=== PATIENT | male | born 1985 | race Caucasian/White ===

== ENCOUNTER 2024-06-01 06:41 | Emergency (ER) | payer SELFPAY ==
--- NOTE | ~2024-06-01 | XR_ITS ---
EXAMINATION: XR CHEST CLINICAL INFORMATION: Shortness of breath, COVID positive COMPARISON: None available. TECHNIQUE: Frontal view of the chest was obtained. FINDINGS: No significant abnormality is noted involving the heart, lungs, mediastinum, bony thorax or soft tissues. XR/XR chest 1V IMPRESSION: No acute process Electronically signed by: Andreas Sánchez MD 06/01/2024 07:16 AM EDT RP
--- NOTE | ~2024-06-01 | CT_ITS ---
EXAMINATION: CT ANGIOGRAM OF THE CHEST WITH AND WITHOUT CONTRAST (CT PULMONARY ANGIOGRAM FOR PE) CLINICAL INFORMATION: COVID 2.5 weeks, SOB, CP COMPARISON: No pertinent prior studies are available for comparison. TECHNIQUE: Prior to contrast administration, noncontrast localization images were obtained. Subsequently, multidetector volumetric imaging was performed from the thoracic inlet to the pubic symphysis through the chest, abdomen, and pelvis following the administration of 80 mL Omnipaque 350 intravenous contrast. No contrast reaction reported Sagittal, coronal, and MIP oblique sagittal (through the chest only) reformatted images were obtained on the CT workstation, uploaded to PACS, and reviewed. Total exam dose-length product: 528 mGy-cm FINDINGS: QUALITY OF STUDY/CONTRAST BOLUS: Suboptimal. PULMONARY ARTERIES: No gross large emboli noted but the contrast enhancement is suboptimal because the study is considered suboptimal. THORACIC AORTA: No aneurysm or dissection. LUNG: No focal consolidation, nodules or masses. PLEURA: No pleural effusion or pneumothorax. MEDIASTINUM: Normal heart size. No pericardial effusion. No hilar or mediastinal lymphadenopathy. No evidence of septal bowing or right heart strain. CHEST WALL/AXILLA: No axillary or internal mammary lymphadenopathy. ABDOMEN/PELVIS: The liver is enlarged and demonstrates severe hepatic steatosis. There is no significant reflux of contrast into the IVC or hepatic veins. There is kyphosis and spondylitic change in the thoracic spine. Sternum intact. CT/CT angio chest PE protocol IMPRESSION: 1. Suboptimal study. No gross large emboli. No active disease in the chest. 2. VTE: Negative Electronically signed by: Harsh Lowry MD 06/01/2024 10:26 AM EDT
[2024-06-01 06:49] VITALS: BP 172/105; PULSE 108; RESP 16; TEMP 36.5; O2SAT 97; BMI 48.3
[2024-06-01 07:22] LABS: MANUAL DIFF FLAG NO
[2024-06-01 07:24] LABS: Basophils Absolute Auto 0.1 X10*3/uL (0.0-0.2); Basophils Percent Auto 0.9 % (0-2); Eosinophils Absolute Auto 0.3 X10*3/uL (0.0-0.4); Eosinophils Percent Auto 3.3 % (0-4); Hematocrit 45.3 % (42.0-52.0); Hemoglobin 15.2 g/dl (14.0-18.0); Imm Gran Abs Auto 0.15 X10*3/uL (0.00-0.03); Imm Gran Pct Auto 1.6 % (0.0-0.4); Lymphocytes Absolute Auto 1.8 X10*3/uL (1.2-4.9); Lymphocytes Percent Auto 19.8 % (20-40); Mean Corpuscular HGB Conc 33.6 g/dl (31.0-36.0); Mean Corpuscular Volume 89.3 fL (80.0-98.0); Mean Platelet Volume 9.4 fL (9.4-12.4); Monocytes Absolute Auto 0.6 X10*3/uL (0.1-1.2); Monocytes Percent Auto 6.5 % (2-11); NRBC Pct Auto 0.4 /100WBC (0.0-0.2); Neutrophils Absolute Auto 6.3 x10*3/uL (2.0-8.3); Neutrophils Percent Auto 67.9 % (45-73); Platelet Count 150 X10*3/uL (160-400); Red Blood Count 5.07 X10*6/uL (4.60-5.80); Red Cell Distribution Width 15.6 % (11.0-16.0); White Blood Count 9.3 X10*3/uL (4.8-10.8)
[2024-06-01 07:37] LABS: D Dimer High Sensitivity < 150 NG/ML
--- NOTE | 2024-06-01 07:37 | ED_ITS ---
HPI - URI/Sore Throat General Chief Complaint: Upper Respiratory Symptoms Stated Complaint: COVID symptoms Time Seen by Provider: 06/01/24 07:37 Source: patient Mode of arrival: ambulatory Limitations: no limitations History of Present Illness ED Provider: Dr. Kailash Parmar HPI Narrative: 39-year-old male with a history depression, anxiety, PTSD who presents emergency department for evaluation of shortness of breath, dyspnea on exertion productive cough, body aches, nausea and fatigue. The patient tested positive for COVID a proximally 2.5 weeks prior. Patient also states that he has had persistent nausea with intermittent vomiting. He states that he has had frequent stools but no diarrhea. Patient is a nurse in our emergency department. He states he tried to come to work yesterday but was only able to work for hours before he was fatigued and had to go home. Patient was concerned that his symptoms were not improving therefore he came to the emergency department for evaluation. Related Data Allergies Allergy/AdvReac Type Severity Reaction Status Date / Time No Known Allergies Allergy Verified 06/01/24 06:52 Review of Systems 2 Review of Systems: Yes all other systems are reviewed and are negative [facility] Past Medical History [facility] Narrative: Social history: The patient does smoke 2-3 cigarettes per day but also vapes nicotine program. He denies alcohol and drug use. Social History Social History Advance Directives: No Do you have a plan to hurt others: No Plan Physical Exam 2 Vital Signs: Vital Signs: Last Vital Signs Temp 98.2 F 06/01/24 12:36 Pulse 101 H 06/01/24 12:36 Resp 18 06/01/24 12:36 BP 152/70 H 06/01/24 12:36 Pulse Ox 97 06/01/24 12:36 O2 Del Method Room Air 06/01/24 12:36 BMI result Body Mass Index 48.3 Vital signs revealed an elevated heart rate of 101 and an elevated blood pressure of 152/70. O2 saturation was 97% on room air Exam: General: Awake, alert in no distress Head: Normocephalic, atraumatic EENT: PERRL, Lids normal, sclera normal, conjunctiva normal, nose normal , ears normal, throat without erythema or exudates Neck: Supple, no adenopathy Lung: breath sounds symmetric, no wheezing, rales or rhonchi Chest: symmetric movement, nontender Heart: regular rate and rhythm, normal S1, S2 no murmurs or rubs Abdomen: soft, non-tender, nondistended, normal bowel sounds Back: no vertebral tenderness, no CVAT Extremities: no deformities, moves all extremities symmetrically, trace to 1+ pitting edema, bilaterally symmetric Neuro: Awake, alert, oriented, normal speech, moves all extremities symmetrically Psych: Pleasant, cooperative Medications Administered Discontinued Medications Generic Name Dose Route Start Last Admin Trade Name Lorenza PRN Reason Stop Dose Admin Lactated Ringer's 1,000 mls @ 999 mls/hr 06/01/24 07:51 06/01/24 08:34 Lr IV 06/01/24 08:51 999 mls/hr .Q1H1M STA Administration Iohexol 84 ml 06/01/24 08:56 06/01/24 08:57 Iohexol 350 Mg/Ml 75 Ml Infus..Btl IV 06/01/24 08:57 84 ml ONCE ONE Administration Medical Decision Making Medical Decision Making [facility] Narrative: 39-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 The patient tested positive for COVID a proximally 2.5 weeks prior. Vital signs did revealed an elevated heart rate and elevated blood pressure otherwise unremarkable. Physical examination did reveal trace to 1+ pitting edema bilaterally symmetric but was otherwise unremarkable. Differential diagnosis: ?Includes but is not limited to bronchitis, bacterial pneumonia, viral pneumonia, cardiomyopathy, myocardial infarction, myocardial ischemia, pulmonary embolism Following evaluation was ordered: CBC, BNP, liver panel, troponin, BNP, D- dimer, chest x-ray, CT pulmonary angiogram PE protocol, COVID-19, RSV and influenza Patient was initially treated with the following: Lactated Ringer's x1 L Course: The patient's laboratory evaluation did reveal low platelet count otherwise was unremarkable. Patient's COVID-19 test was negative. Chest x-ray did not reveal any significant abnormalities. Given the patient's persistent symptoms I was concerned that he may have a pulmonary embolism however the CT pulmonary angiogram was negative which is very reassuring. The patient does have trace pitting edema and I think that this is related to the patient being immobile secondary to his illness in his increased fluid intake I do not think it is secondary to cardiomyopathy or myocardial infarction. My impression is that the patient has persistent symptoms secondary to COVID-19 and that he may take another week or 2 to recover. I did discuss this with him. Given his inability to work, he was given a work note for 1 week. He was advised to follow up with his PCP and to return to the emergency department if his symptoms got worse if he developed any new symptoms that were concerning to him. Admission/Observation Consideration of admission/observation: Escalation of care including admission/observation considered Lab Data MDM Lab Attestation statement: I reviewed the patient's lab results. My independent interpretation patient's laboratory evaluation is as follows: CBC revealed a low platelet count of a [id number]. Glucose elevated 128. High sensitive troponin I was detectable but not elevated at 3.4. D-dimer was normal. COVID-19, influenza and RSV were negative. BNP was normal. COVID-19, RSV and influenza were negative. 06/01/24 07:16 06/01/24 07:16 Labs: Lab Results 06/01/24 Range/Units 07:16 WBC 9.3 (4.8-10.8) X10*3/uL RBC 5.07 (4.60-5.80) X10*6/uL Hgb 15.2 (14.0-18.0) g/dl Hct 45.3 (42.0-52.0) % MCV 89.3 (80.0-98.0) fL MCH 30.0 (27.0-33.0) pg MCHC 33.6 (31.0-36.0) g/dl RDW 15.6 (11.0-16.0) % Plt Count 150 L (160-400) X10*3/uL MPV 9.4 (9.4-12.4) fL Immature Gran % (Auto) 1.6 H (0.0-0.4) % Neut % (Auto) 67.9 (45-73) % Lymph % (Auto) 19.8 L (20-40) % [place] % (Auto) 6.5 (2-11) % Eos % (Auto) 3.3 (0-4) % Baso % (Auto) 0.9 (0-2) % Lymph # (Auto) 1.8 (1.2-4.9) X10*3/uL [place] # (Auto) 0.6 (0.1-1.2) X10*3/uL Eos # (Auto) 0.3 (0.0-0.4) X10*3/uL Baso # (Auto) 0.1 (0.0-0.2) X10*3/uL Abs Immat Gran (auto) 0.15 H (0.00-0.03) X10*3/uL Absolute Neuts (auto) 6.3 (2.0-8.3) x10*3/uL Absolute Nucleated RBC 0.040 H (0.0-0.012) X10*3/uL Nucleated RBC % (auto) 0.4 H (0.0-0.2) /100WBC D-Dimer High Sensitivty < 150 NG/ML Sodium 139 (135-145) mmol/L Potassium 3.5 (3.3-5.1) mmol/L Chloride 105 (96-108) mmol/L Carbon Dioxide 24 (22-29) mmol/L Anion Gap 14 (12-20) BUN 9 (9-16) mg/dL Creatinine 0.98 (0.5-1.4) mg/dL Estim Creat Clear Calc 121.5 Estimated GFR > 60 Random Glucose 129 H (60-115) mg/dL Calcium 9.7 (8.4-10.2) mg/dL Troponin I High Sens 3.4 (<3.5-35.0) ng/L B-Natriuretic Peptide < 10 (<100) pg/mL Influenza Type A (PCR) NEGATIVE (Negative) Influenza Type B (PCR) NEGATIVE (Negative) RSV RNA Qual (PCR) NEGATIVE (Negative) SARS-CoV-2 RNA (RT-PCR) NEGATIVE (Negative) Independent Interpretation I performed an independent interpretation of an: EKG and Plain X-Ray Interpretation: My independent interpretation patient's 12 EKG is as follows: Normal sinus rhythm rate of 90, normal CA interval, QRS duration QTC interval, no ST segment elevation, no ST segment depression, small Q-wave in lead 3, no significant T- wave abnormalities no PACs, no PVCs-this is a normal EKG My independent interpretation patient's chest x-ray is as follows: No acute infiltrates noted Radiology Impression Discussion of test interpretation with radiology: I have reviewed the radiologist's reading. Radiologist Impression: CT angio chest PE protocol IMPRESSION: 1. Suboptimal study. No gross large emboli. No active disease in the chest. 2. VTE: Negative Electronically signed by: Harsh Lowry MD 06/01/2024 10:26 AM EDT RP Dictated By: Harsh Lowry MD Discharge Plan Discharge Clinical Impression: COVID-19, Dyspnea, Myalgia Patient Disposition: Home, Self-Care Additional Instructions: Your laboratory evaluation was unremarkable except for a slightly low platelet count of a [id number]. This is most likely related to your COVID infection. When you are feeling better you should have a repeat platelet count as an outpatient by your primary care provider. Your chest x-ray was normal. Your EKG was normal. The CT pulmonary angiogram PE protocol revealed no blood clots in your lungs. There were no abnormalities noted of your lungs which is reassuring-there was no evidence for consolidated pneumonia or viral pneumonia which is reassuring. Your COVID-19, influenza and RSV tests were negative. Take ibuprofen 200 mg pills, 2 pills every 6 hours as needed for pain or fever. Take Tylenol (acetaminophen) 500 mg pills, 2 pills every 6 hours as needed for pain or fever. I believe that the swelling in your legs is due to drinking too much fluid and not moving as you normally would given your illness. You should drink fluid only when your thirsty in you should try to get up and move and walk around to improve this dependent edema. At this time, I do not think that your well enough to return to work and that your symptoms are still related to your COVID-19 infection. Please see the work note. Please return to the emergency department if your symptoms get worse or if you develop any symptoms that are concerning to you. If you are feeling worse and have any questions you can call me on my cell phone Please see the work note Stand Alone Forms: Work/School Release Interventions: ED Discharge Assessment Last Done: 06/01/24 12:36 Discharge Date/Time: 06/01/24 12:36 Print Language: Czech
[2024-06-01 07:41] LABS: Anion Gap 14 (12-20); Blood Urea Nitrogen 9 mg/dL (9-16); Calcium 9.7 mg/dL (8.4-10.2); Carbon Dioxide 24 mmol/L (22-29); Chloride 105 mmol/L (96-108); Creatinine Clr Calc Pharmacy 121.5; Estimated Glomerular Filt Rate > 60; Glucose Random 129 mg/dL (60-115); Potassium 3.5 mmol/L (3.3-5.1); Sodium 139 mmol/L (135-145)
--- NOTE | 2024-06-01 07:52 | ECG_ITS ---
Test Reason : diff breathing Blood Pressure : / mmHG Vent. Rate : 090 BPM Atrial Rate : 090 BPM P-R Int : 172 ms QRS Dur : 084 ms QT Int : 356 ms P-R-T Axes : 053 014 065 degrees QTc Int : 435 ms Normal sinus rhythm Normal ECG No previous ECGs available Referred By: Kailash Parmar Electronically Signed By:ALYSSIA PICKERING
[2024-06-01 08:13] LABS: Influenza A PCR NEGATIVE (Negative); Influenza B PCR NEGATIVE (Negative); Resp Syncy Virus RNA Qual PCR NEGATIVE (Negative); SARS COV2 PCR INHOUSE NEGATIVE (Negative)
[2024-06-01 08:17] LABS: Troponin-I High Sensitivity 3.4 ng/L (<3.5-35.0)
[2024-06-01 08:22] LABS: B Type Natriuretic Peptide < 10 pg/mL (<100)
[2024-06-01] MEDS: Lactated Ringers 1,000 ML 999 ML IV (08:34)
--- NOTE | 2024-06-01 08:41 | PC.NURSE ---
Lactated Ringers 1,000 mL infusing as ordered into 18g IV access established in right AC. IV is patent & functional. Pt required shaving to apply EKG stickers. When tegaderm was applied to the IV site, immediate lifting noted due to hair. Reinforced tegaderm with additional tape to secure. Tegaderm does not stick well to the patient's skin.
[2024-06-01] MEDS: iohexoL 350 MG/ML 75 ML INFUS..BTL 84 ML IV (08:57)
[2024-06-01 10:00] VITALS: BP 152/70; PULSE 101; RESP 18; TEMP 36.8; O2SAT 97
[2024-06-01 12:36] VITALS: BP 152/70; PULSE 101; RESP 18; TEMP 36.8; O2SAT 97
== END 2024-06-01 12:36 | disposition home or self-care (01) ==
PROVIDERS: Emergency Provider Emergency Medicine Emergency Medical Services
DX: U07.1 COVID-19 (principal); R06.02 Shortness of breath; R05.9 Cough, unspecified; M79.10 Myalgia, unspecified site; R11.2 Nausea with vomiting, unspecified; Z79.899 Other long term (current) drug therapy
CPT/HCPCS: 0241U; 36415; 71045; 71275; 80048; 83880; 84484; 85025; 85379; 93005; 99284; J7120; Q9967